=== PATIENT | male | born 1975 | race American Indian/Alaskan Native ===

== ENCOUNTER 2019-11-06 14:46 | Emergency (ER) | payer MEDICAID ==
[2019-11-06 15:03] VITALS: BP 136/95
--- NOTE | 2019-11-06 15:05 | Event Note ---
ED Screening Note Date of service: 11/06/19 Time: 15:02 ED Screening Note: 44 male present to ER for fall to the back of his head. Started nausea, dizziness after head injury. Had fatigue and syncopal moment. This initial assessment/diagnostic orders/clinical plan/treatment(s) is/are subject to change based on patients health status, clinical progression and re- assessment by fellow clinical providers in the ED. Further treatment and workup at subsequent clinical providers discretion. Patient/guardian urged not to elope from the ED as their condition may be serious if not clinically assessed and managed. Initial orders include:
[2019-11-06 16:15] LABS: Basophils % (Auto) 0.7 % (0.0-1.8); Eosinophils % (Auto) 0.8 % (0.0-4.3); Hematocrit 48.4 % (35.5-45.6); Hemoglobin 16.2 gm/dl (11.8-15.2); Lymphocytes # (Auto) 1.3 K/mm3 (1.2-5.4); Lymphocytes % (Auto) 26.9 % (13.4-35.0); Mean Corpuscular HGB Conc 34 % (32-34); Mean Corpuscular Volume 90 fl (84-94); Monocytes # (Auto) 0.3 K/mm3 (0.0-0.8); Monocytes % (Auto) 7.2 % (0.0-7.3); Platelet Count 258 K/mm3 (140-440); Red Blood Count 5.39 M/mm3 (3.65-5.03); Red Cell Distribution Width 14.3 % (13.2-15.2)
[2019-11-06 16:32] LABS: BUN/Creatinine Ratio 14; Blood Urea Nitrogen 11 mg/dL (9-20); Calcium 9.9 mg/dL (8.4-10.2); Hemolysis Index 16
--- NOTE | 2019-11-06 16:40 | Emergency Department Report ---
<DILIP GARNER - Last Filed: 11/06/19 16:35> ED General Adult HPI - General Chief complaint: Fall Stated complaint: FALL/HEAD INJURY Time Seen by Provider: 11/06/19 15:02 Source: patient Mode of arrival: Ambulatory Limitations: No Limitations - History of Present Illness Initial comments: This is a 44-year-old male who presents to ED complaining trip and fall earlier today while he was walking to class. Patient states that he felt a little dizzy and fell down. Patient has a past medical history of hypertension hyperchol esterol and schizophrenia which he is currently taking medication for all 3. She denies loss of consciousness after fall. She denies any injuries to the head or neck after incident. Patient denies any chest pain, shortness of breath, headache blurry vision contusion and swelling to the head or neck - Related Data Allergies Allergy/AdvReac Type Severity Reaction Status Date / Time nut - unspecified Allergy Unknown Verified 11/06/19 14:49 ED Review of Systems Comment: All other systems reviewed and negative ED Past Medical Hx - Past Medical History Hx Hypertension: Yes Hx Psychiatric Treatment: (Schziophrenic) Additional medical history: high cholesterol - Surgical History Past Surgical History?: No - Social History Smoking Status: Never Smoker Substance Use Type: None ED Physical Exam - General Limitations: No Limitations General appearance: alert, in no apparent distress - Head Head exam: Present: atraumatic, normocephalic, normal inspection, other (no signs of contusion and swelling noted no bleeding) - Eye Eye exam: Present: normal appearance, PERRL, EOMI Pupils: Present: normal accommodation - ENT ENT exam: Present: mucous membranes moist - Neck Neck exam: Present: normal inspection, full ROM. Absent: tenderness, meningismus - Respiratory Respiratory exam: Present: normal lung sounds bilaterally. Absent: respiratory distress, chest wall tenderness - Cardiovascular Cardiovascular Exam: Present: regular rate, normal rhythm. Absent: systolic murmur, diastolic murmur, rubs, gallop - GI/Abdominal GI/Abdominal exam: Present: soft, normal bowel sounds - Rectal Rectal exam: Present: deferred - Extremities Exam Extremities exam: Present: normal inspection - Back Exam Back exam: Present: normal inspection - Neurological Exam Neurological exam: Present: alert, oriented X3, CN II-XII intact, normal gait - Psychiatric Psychiatric exam: Present: normal affect, normal mood - Skin Skin exam: Present: warm, dry, intact, normal color. Absent: rash ED Medical Decision Making - Lab Data Result diagrams: 11/06/19 16:00 11/06/19 16:00 Laboratory Last Values WBC 4.8 K/mm3 (4.5-11.0) 11/06/19 16:00 RBC 5.39 M/mm3 (3.65-5.03) H 11/06/19 16:00 Hgb 16.2 gm/dl (11.8-15.2) H 11/06/19 16:00 Hct 48.4 % (35.5-45.6) H 11/06/19 16:00 MCV 90 fl (84-94) 11/06/19 16:00 MCH 30 pg (28-32) 11/06/19 16:00 MCHC 34 % (32-34) 11/06/19 16:00 RDW 14.3 % (13.2-15.2) 11/06/19 16:00 Plt Count 258 K/mm3 (140-440) 11/06/19 16:00 Lymph % (Auto) 26.9 % (13.4-35.0) 11/06/19 16:00 [place] % (Auto) 7.2 % (0.0-7.3) 11/06/19 16:00 Eos % (Auto) 0.8 % (0.0-4.3) 11/06/19 16:00 Baso % (Auto) 0.7 % (0.0-1.8) 11/06/19 16:00 Lymph # 1.3 K/mm3 (1.2-5.4) 11/06/19 16:00 [place] # 0.3 K/mm3 (0.0-0.8) 11/06/19 16:00 Eos # 0.0 K/mm3 (0.0-0.4) 11/06/19 16:00 Baso # 0.0 K/mm3 (0.0-0.1) 11/06/19 16:00 Seg Neutrophils % 64.4 % (40.0-70.0) 11/06/19 16:00 Seg Neutrophils # 3.1 K/mm3 (1.8-7.7) 11/06/19 16:00 Sodium 142 mmol/L (137-145) 11/06/19 16:00 Potassium 4.2 mmol/L (3.6-5.0) 11/06/19 16:00 Chloride 103.5 mmol/L (98-107) 11/06/19 16:00 Carbon Dioxide 27 mmol/L (22-30) 11/06/19 16:00 Anion Gap 16 mmol/L 11/06/19 16:00 BUN 11 mg/dL (9-20) 11/06/19 16:00 Creatinine 0.8 mg/dL (0.8-1.5) 11/06/19 16:00 Estimated GFR > 60 ml/min 11/06/19 16:00 BUN/Creatinine Ratio 14 % 11/06/19 16:00 Glucose 102 mg/dL (75-100) H 11/06/19 16:00 Calcium 9.9 mg/dL (8.4-10.2) 11/06/19 16:00 - EKG Data EKG shows normal: sinus rhythm Rate: normal - EKG Data Interpretation: normal EKG - Medical Decision Making 44-year-old male presents status post fall earlier today while going to [employer]. CBC BMP shows abnormal findings. Patient denies extremities iron deficiency anemia. EKG shows no acute findings C report above. Normal patient is in no acute distress Patient had no neurological deficit. ED Disposition Clinical Impression: Fall from ground level Disposition: DC-01 TO HOME OR SELFCARE Is pt being admited?: No Does the pt Need Aspirin: No Condition: Stable Instructions: Dehydration (ED), Fall Prevention (ED) Additional Instructions: Make sure to follow up with the primary care physician as discussed. Take all your medications as you've been doing as dirested by your pcp If you have any worsening symptoms or develop new symptoms please return to ED immediately. Referrals: JOSEPH HEADLEY [Primary Care Provider] - 3-5 Days Forms: Accompanied Note, Work/School Release Form(ED) Time of Disposition: 16:39 <LORY CORREA - Last Filed: 11/17/19 23:05> ED Review of Systems ROS: Stated complaint: FALL/HEAD INJURY Other details as noted in HPI ED Course Vital Signs 11/06/19 15:02 Temperature 98.0 F Pulse Rate 75 Respiratory 20 Rate Blood Pressure 136/95 O2 Sat by Pulse 99 Oximetry ED Medical Decision Making - Lab Data Result diagrams: 11/06/19 16:00 11/06/19 16:00 - Medical Decision Making Attestation: Available for consultation Critical care attestation.: If time is entered above; I have spent that time in minutes in the direct care of this critically ill patient, excluding procedure time. ED Disposition Is pt being admited?: No
== END 2019-11-06 16:57 | disposition home or self-care (01) ==
LOC: ED 14:46
DX: R42 Dizziness and giddiness (principal); R53.1 Weakness; F20.9 Schizophrenia, unspecified; I10 Essential (primary) hypertension; E78.00 Pure hypercholesterolemia, unspecified; Z91.010 Allergy to peanuts; W01.0XXA Fall on same level from slipping, tripping and stumbling without subsequent striking against object, initial encounter; Y93.89 Activity, other specified; Y92.89 Other specified places as the place of occurrence of the external cause; Y99.8 Other external cause status
CPT/HCPCS: 36415; 80048; 85025; 93005; 93010